=== PATIENT | female | born 1980 | race Caucasian/White ===

== ENCOUNTER 2018-12-07 00:08 | Emergency (ER) | payer OTHER ==
[2018-12-07 05:02] LABS: Hematocrit 45 % (35-47); Mean Corpuscular HGB Conc 34 g/dL (31-36); Mean Corpuscular Hemoglobin 30 pg (27-31); Mean Corpuscular Volume 89 fL (80-97); Platelet Count 50 10^3/uL (150-450); Red Blood Count 4.97 10^6 /uL (3.70-4.87); Red Cell Distribution Width 15 % (10-15); White Blood Count 22.7 10^3/uL (3.5-10.8)
[2018-12-07 05:16] LABS: Albumin 4.2 g/dL (3.2-5.2); Albumin/Globulin Ratio 1.8 (1-3); BUN/Creatinine Ratio 16.3 (8-20); Calcium 8.9 mg/dL (8.6-10.3); EGFR African American 76.4 (>60); EGFR Non-African American 63.2 (>60); Globulin 2.4 g/dL (2-4); Potassium 3.5 mmol/L (3.5-5.0); Total Bilirubin 0.6 mg/dL (0.2-1.0); Total Protein 6.6 g/dL (6.4-8.9)
[2018-12-07 05:53] LABS: ABS Basophils 0.2 10^3/ul (0-0.2); ABS Eosinophils 0.5 10^3/ul (0-0.6); ABS Lymphocytes 6.7 10^3/ul (1.0-4.8); ABS Monocytes 1.4 10^3/ul (0-0.8); ABS Neutrophils 13.8 10^3/ul (1.5-7.7); Eosinophil % 2.4 %; Lymphocyte % 29.6 %; Nucleated Red Blood Cells % 0.1
[2018-12-07] MEDS ORDERED: cefTRIAXone(*) 1 GM in NS 0.9% 50 ML* 50 ML IVPB ONE (06:29)
--- NOTE | 2018-12-07 06:46 | ED ---
Lower Extremity - HPI Summary HPI Summary: Pt. is a 38 y.o female who presents to the ER for redness and swelling to LEs x 2-3 days. Pt. is working at [employer] for the week and lives in [place]. Pt. has a hx of ITP and currently taking Nplate. Pt. states she has been having issues with leg swelling for months and was rx Lasix. Pt. states she noticed her legs looks red and itchy the last few days. Pt. denies fever, chills, N/V, CP, SOB. Pt. denies any injuries, insect bites, wounds. Sxs are mild-moderate in severity. No current modifying factors. Denies IV drug use. - History of Current Complaint Chief Complaint: EDExtremityLower Stated Complaint: LEG PAIN PER PT Time Seen by Provider: 12/07/18 06:08 Hx Obtained From: Patient Pain Intensity: 7 - Allergies/Home Medications Allergies/Adverse Reactions: Allergies Allergy/AdvReac Type Severity Reaction Status Date / Time No Known Allergies Allergy Verified 12/07/18 00:12 PMH/Surg Hx/FS Hx/Imm Hx Previously Healthy: Yes Endocrine/Hematology History: Reports: Other Endocrine/Hematological Disorders - ITP Infectious Disease History: No Infectious Disease History: Denies: Traveled Outside the [place] in Last 30 Days - Family History Known Family History: Positive: Non-Contributory - Social History Occupation: Unemployed Lives: With Family Hx Substance Use: No Review of Systems Constitutional: Negative Negative: Fever, Chills Cardiovascular: Negative Respiratory: Negative Gastrointestinal: Negative Negative: Vomiting, Nausea Positive: Other - Redness and swelling to LEs. Positive: Other - redness to legs Neurological: Negative All Other Systems Reviewed And Are Negative: Yes Physical Exam Triage Information Reviewed: Yes Vital Signs On Initial Exam: Initial Vitals Temp Pulse Resp BP Pulse Ox 98.6 F 82 18 137/90 95 12/07/18 00:10 12/07/18 00:10 12/07/18 00:10 12/07/18 00:10 12/07/18 00:10 Vital Signs Reviewed: Yes Appearance: Positive: Well-Appearing - Pt. lying in bed in NAD. Skin: Positive: Warm, Dry Head/Face: Positive: Normal Head/Face Inspection Eyes: Positive: Normal, EOMI Neck: Positive: Supple Respiratory/Lung Sounds: Positive: Clear to Auscultation, Breath Sounds Present Cardiovascular: Positive: Normal, RRR Musculoskeletal: Positive: Other - Mild edema to bilateral LEs. Faint erythema and warmth starting at mid shins extending to mid foot bilaterally. Petechial rash noted to bilateral LEs. No wounds noted. Neurological: Positive: Normal, CN Intact II-III Psychiatric: Positive: Affect/Mood Appropriate Diagnostics - Vital Signs Vital Signs Temp Pulse Resp BP Pulse Ox 12/07/18 04:51 97.3 F 68 18 135/90 99 12/07/18 02:48 97.1 F 76 18 138/80 96 12/07/18 00:10 98.6 F 82 18 137/90 95 - Laboratory Lab Results: Lab Results 12/07/18 12/07/18 Range/Units 04:51 04:51 WBC 22.7 H (3.5-10.8) 10^3/uL RBC 4.97 H (3.70-4.87) 10^6 /uL Hgb 15.0 (12.0-16.0) g/dL Hct 45 (35-47) % MCV 89 (80-97) fL MCH 30 (27-31) pg MCHC 34 (31-36) g/dL RDW 15 (10-15) % Plt Count 50 L (150-450) 10^3/uL MPV 10.0 (7.4-10.4) fL Neut % (Auto) 60.9 % Lymph % (Auto) 29.6 % [place] % (Auto) 6.0 % Eos % (Auto) 2.4 % Baso % (Auto) 1.1 % Absolute Neuts (auto) 13.8 H (1.5-7.7) 10^3/ul Absolute Lymphs (auto) 6.7 H (1.0-4.8) 10^3/ul Absolute Monos (auto) 1.4 H (0-0.8) 10^3/ul Absolute Eos (auto) 0.5 (0-0.6) 10^3/ul Absolute Basos (auto) 0.2 (0-0.2) 10^3/ul Absolute Nucleated RBC 0.0 10^3/ul Nucleated RBC % 0.1 Hem Pathologist Commnt Pending Sodium 139 (135-145) mmol/L Potassium 3.5 (3.5-5.0) mmol/L Chloride 105 (101-111) mmol/L Carbon Dioxide 27 (22-32) mmol/L Anion Gap 7 (2-11) mmol/L BUN 16 (6-24) mg/dL Creatinine 0.98 H (0.51-0.95) mg/dL Est GFR ( Amer) 76.4 (>60) Est GFR (Non-Af Amer) 63.2 (>60) BUN/Creatinine Ratio 16.3 (8-20) Glucose 117 H (70-100) mg/dL Calcium 8.9 (8.6-10.3) mg/dL Total Bilirubin 0.60 (0.2-1.0) mg/dL AST 12 L (13-39) U/L ALT 14 (7-52) U/L Alkaline Phosphatase 89 (34-104) U/L Total Protein 6.6 (6.4-8.9) g/dL Albumin 4.2 (3.2-5.2) g/dL Globulin 2.4 (2-4) g/dL Albumin/Globulin Ratio 1.8 (1-3) Result Diagrams: 12/07/18 04:51 12/07/18 04:51 Lab Statement: Any lab studies that have been ordered have been reviewed, and results considered in the medical decision making process. Lower Extremity Course/Dx - Course Course Of Treatment: Pt. presenting with redness and swelling to LEs. She is afebrile. Exam appears consistant with cellulitis. 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 Labs show elevated WBC of 22.7 and platelet count of 50. Discussed with pt. and she states that is usually where her platelet count is. Pt. given an IV dose of rocephin. Will dc home with keflex QID. Case dscussed briefly with Dr. Hector who agrees with dc. Strongly advised pt. to avoid standing, to elevate legs and keep cool. Will f.u with her PCP on Sunday for repeat labs and recheck legs. To return to ER if sxs change or worsen. Pt. understands and agrees with plan. - Diagnoses Differential Diagnosis/HQI/PQRI: Positive: Cellulitis, Sprain, Strain Provider Diagnoses: Cellulitis, Thrombocytopenia Discharge - Sign-Out/Discharge Documenting (check all that apply): Patient Departure - Discharge Patient Received Moderate/Deep Sedation with Procedure: No - Discharge Plan Condition: Good Disposition: HOME Prescriptions: Cephalexin CAP* [Keflex CAP*] 500 mg PO QID #40 cap Patient Education Materials: Cellulitis (ED) Referrals: [facility] [Outside] Additional Instructions: Schedule a follow up appointment with PCP in 2-3 days for recheck and repeat labs Take antibiotics as directed Avoid standing for long periods of time and elevate legs frequently Return to ER for increased redness, fever, vomiting or if concerned - Billing Disposition and Condition Condition: GOOD Disposition: Home
[2018-12-07 07:04] LABS: C Reactive Protein 37.86 mg/L (<8.01)
[2018-12-07 08:31] VITALS: BP 107/54
== END 2018-12-07 08:30 | disposition home or self-care (01) ==
LOC: ED 00:08
DX: L03.116 Cellulitis of left lower limb (principal); L03.115 Cellulitis of right lower limb; D69.6 Thrombocytopenia, unspecified
CPT/HCPCS: 36415; 80053; 85025; 85060; 86140; 87040; 96365; 99282; J0696